=== PATIENT | female | born 1980 | race Asian ===

== ENCOUNTER 2017-12-26 00:49 | Inpatient (IN) | payer SELFPAY ==
[~2017-12-26] VITALS: Ht 162.6 cm; Wt 59.4 kg
[2017-12-26] MEDS ORDERED: LACTATED RINGERS 1,000 ML IV SCH (01:41)
[2017-12-26] MEDS ORDERED: METHYLERGONOVINE 0.2 MG/ML AMP IM PRN ×2 (01:45→07:00)
[2017-12-26] MEDS ORDERED: OXYTOCIN 10 UNITS/ML VIAL IM ONE (01:45)
[2017-12-26] MEDS ORDERED: OXYTOCIN 20 UNITS in LACTATED RINGERS 1,000 ML IV SCH ×2 (01:45→08:24)
[2017-12-26] MEDS ORDERED: MISOPROSTOL 25 MCG TAB VG PRN (01:45)
[2017-12-26] MEDS ORDERED: NALBUPHINE 10 MG/ML AMP IVP PRN ×2 (01:45→08:25)
[2017-12-26] MEDS ORDERED: PROMETHAZINE 25 MG/ML VIAL IVP PRN (01:45)
[2017-12-26] MEDS ORDERED: CITRIC ACID/SODIUM CITRATE 30 ML UDC PO ONE (02:10)
[2017-12-26] MEDS ORDERED: OSC500 PO (03:05)
[2017-12-26 03:06] VITALS: BP 108/62
[2017-12-26 03:19] LABS: BASOPHILS % (AUTO) 0.4 % (0.0-2.0); EOSINOPHILS % (AUTO) 0.4 % (0.0-4.0); HEMOGLOBIN 11.7 g/dL (12.0-16.0); LYMPHOCYTES # (AUTO) 1.4 K/uL (2.5-16.5); LYMPHOCYTES % (AUTO) 17.1 % (20.5-51.1); MEAN CORPUSCULAR HEMOGLOBIN 33 pg (27-31); MEAN CORPUSCULAR HGB CONC 34 g/dL (33-37); MEAN CORPUSCULAR VOLUME 96.4 fL (80-94); MONOCYTES # (AUTO) 0.5 K/uL (0.8-1.0); MONOCYTES % (AUTO) 6.3 % (1.7-9.3); NEUTROPHILS # (AUTO) 6.4 K/uL (1.8-7.7); NEUTROPHILS % (AUTO) 75.8 % (42.2-75.2); PLATELET COUNT (AUTO) 177 K/uL (140-450); RED BLOOD CELL COUNT(AUTO) 3.53 MIL/uL (4.20-5.40); RED CELL DISTRIBUTION WIDTH 13.8 % (11.6-13.7); WHITE BLOOD COUNT (AUTO) 8.4 K/uL (4.8-10.8)
[2017-12-26 04:04] LABS: APPEARANCE,URINE CLEAR (CLEAR); BILIRUBIN,URINE NEGATIVE (NEGATIVE); BLOOD, URINE TRACE-L (NEGATIVE); COLOR,URINE YELLOW (YELLOW); LEUKOCYTE ESTERASE ,URINE 2+ (NEGATIVE); NITRITE, URINE NEGATIVE (NEGATIVE); UGLUCOSE NEGATIVE (NEGATIVE)
[2017-12-26 04:38] LABS: RBC,URINE 0-5 (RARE) /HPF (0-5)
[2017-12-26] MEDS ORDERED: MEASLES, MUMPS, AND RUBELLA 1 VIAL SQVAC PRN (07:00)
[2017-12-26] MEDS ORDERED: HYDROcodone/APAP 5/325 MG 1 TAB TAB PO PRN (07:00)
[2017-12-26] MEDS ORDERED: SIMETHICONE 80 MG TAB.CHEW PO PRN (07:00)
[2017-12-26] MEDS ORDERED: TEMAZEPAM 15 MG CAP PO PRN (07:00)
[2017-12-26] MEDS ORDERED: IBUPROFEN 800 MG TAB PO PRN (07:00)
[2017-12-26] MEDS ORDERED: oxyCODONE/APAP 5/325 MG 1 TAB TAB PO PRN (07:00)
[2017-12-26] MEDS ORDERED: TRIMETHOBENZAMIDE 200 MG/2 ML SYR IM PRN (07:00)
[2017-12-26] MEDS ORDERED: CITRIC ACID/SODIUM CITRATE 30 ML UDC ONE (07:16)
[2017-12-26] MEDS ORDERED: BUPIVACAINE-MPF 0.75% 10 ML VIAL INJ ONE (07:50)
[2017-12-26] MEDS ORDERED: ceFAZolin 1,000 MG VIAL ONE (07:50)
[2017-12-26] MEDS ORDERED: OXYTOCIN 10 UNITS/ML VIAL ONE ×3 (07:50→08:52)
[2017-12-26] MEDS ORDERED: MIDAZOLAM 2 MG/2 ML VIAL ONE (07:54)
[2017-12-26] MEDS ORDERED: MORPHINE PRES FREE 2 MG/2 ML 2 mL UD SYRINGE ONE (07:55)
[2017-12-26] MEDS ORDERED: TRIAMCINOLONE 10 MG/ML 5ML VIAL ONE (08:01)
[2017-12-26] MEDS ORDERED: HYDROmorphone 1 MG/ML AMP IVP PRN (08:25)
[2017-12-26] MEDS ORDERED: ONDANSETRON 4 MG/2 ML VIAL IVP PRN ×2 (08:25)
[2017-12-26] MEDS ORDERED: diphenhydrAMINE 50 MG/ML VIAL IVP PRN ×2 (08:25)
[2017-12-26] MEDS ORDERED: NALOXONE 0.4 MG/ML VIAL IVP PRN ×3 (08:25)
[2017-12-26] MEDS ORDERED: MEPERIDINE 25 MG/ML SYR IVP PRN (08:25)
[2017-12-26] MEDS ORDERED: ONDANSETRON 4 MG/2 ML VIAL ONE (08:51)
--- NOTE | 2017-12-26 10:10 | NUR ---
PATIENT HAS BEEN SCREENED AND CATEGORIZED LOW NUTRITION RISK. PATIENT WILL BE SEEN WITHIN 7 DAYS OF ADMISSION. 01/01/[address]
[2017-12-26 13:28] LABS: RAPID PLASMA REAGIN NON-REACTIVE (Non Reactiv)
[2017-12-26] MEDS: OXYTOCIN 20 UNITS in LACTATED RINGERS 1,000 ML IV SCH (19:05)
[2017-12-26] MEDS: DOCUSATE SOD/SENNA 50/8.6 MG 1 TAB PO SCH (21:00)
[2017-12-27] MEDS ORDERED: OXYTOCIN 20 UNITS/LR PREMIX 1,000 ML IV ONE (02:34)
[2017-12-27] MEDS: OXYTOCIN 20 UNITS in LACTATED RINGERS 1,000 ML IV SCH (02:56)
[2017-12-27 06:27] LABS: BASOPHILS % (AUTO) 0.1 % (0.0-2.0); EOSINOPHILS % (AUTO) 0.3 % (0.0-4.0); HEMATOCRIT 28.8 % (36-48); HEMOGLOBIN 9.8 g/dL (12.0-16.0); LYMPHOCYTES # (AUTO) 0.8 K/uL (2.5-16.5); LYMPHOCYTES % (AUTO) 6.3 % (20.5-51.1); MEAN CORPUSCULAR HEMOGLOBIN 33 pg (27-31); MEAN CORPUSCULAR HGB CONC 34 g/dL (33-37); MEAN CORPUSCULAR VOLUME 95.8 fL (80-94); MONOCYTES # (AUTO) 0.6 K/uL (0.8-1.0); MONOCYTES % (AUTO) 4.5 % (1.7-9.3); NEUTROPHILS # (AUTO) 11.2 K/uL (1.8-7.7); NEUTROPHILS % (AUTO) 88.8 % (42.2-75.2); PLATELET COUNT (AUTO) 129 K/uL (140-450); RED BLOOD CELL COUNT(AUTO) 3.01 MIL/uL (4.20-5.40); RED CELL DISTRIBUTION WIDTH 13.5 % (11.6-13.7); WHITE BLOOD COUNT (AUTO) 12.6 K/uL (4.8-10.8)
[2017-12-27] MEDS: KETOROLAC 30 MG/ML VIAL IM/IVP SCH ×2 (10:01)
[2017-12-27] MEDS: DOCUSATE SOD/SENNA 50/8.6 MG 1 TAB PO SCH (21:09)
[2017-12-28] MEDS: DOCUSATE SOD/SENNA 50/8.6 MG 1 TAB PO SCH (21:01)
== END 2017-12-29 14:10 | disposition home or self-care (01) | DRG 766 ==
LOC: MLD 00:49 → MFCC 08:00
PROVIDERS: ADMIT Obstetrics & Gynecology; ATTEND Obstetrics & Gynecology
PROC: 3E0234Z Introduction of Serum, Toxoid and Vaccine into Muscle, Percutaneous Approach (ICD-10-PCS; principal; 2017-12-27)
PROC: 10D00Z1 Extraction of Products of Conception, Low, Open Approach (ICD-10-PCS; 2017-12-27)
DX: O32.1XX0 Maternal care for breech presentation, not applicable or unspecified (principal); O69.1XX0 Labor and delivery complicated by cord around neck, with compression, not applicable or unspecified; Z37.0 Single live birth; Z23 Encounter for immunization; Z3A.39 39 weeks gestation of pregnancy
CPT/HCPCS: 36415; 51702; 81001; 85025; 86592; 86886; 86900; 86901; 87086; 90715; J0690; J1885; J2250; J2270; J2405; J2590; J3301; J3490; J7060; J7120